=== PATIENT | male | born 1950 | race Caucasian/White ===

== ENCOUNTER → 2016-08-20 | Outpatient (CLI) | payer OTHER ==
--- NOTE | 2016-08-20 11:27 | DX ---
Bilateral Feet, 3 Views Each Side Reason for examination: Bilateral foot pain in a 65-year-old male; no report of recent specific traum a. Findings: A fracture or other acute osseous abnormality is not identified. Evaluation of the bones an d joints of both feet shows no erosions. Mild degenerative changes are seen involving interphalangeal joints most pronounced involving the distal interphalangeal joints of the second toes bilaterally.. The osseous mineralization is normal. Impression: Negative for acute abnormality with mild degenerative changes noted as detailed above.
== END ==
LOC: BMCIMAGING 10:06
PROVIDERS: ATTEND Podiatrist Foot & Ankle Surgery
DX: M79.89 Other specified soft tissue disorders (principal); M79.671 Pain in right foot; M79.672 Pain in left foot

== ENCOUNTER → 2018-09-24 | Outpatient (CLI) | payer OTHER | LOC: FIMAGING 08:07 ==

== ENCOUNTER → 2018-11-26 | Outpatient (CLI) | payer OTHER | LOC: BMCIMAGING 09:58 | PROVIDERS: ATTEND Internal Medicine | DX: R22.0 Localized swelling, mass and lump, head (principal) | CPT/HCPCS: 76536-PO ==